=== PATIENT | female | born 1980 | race Hispanic/Latino ===

== ENCOUNTER 2017-05-15 11:12 | Emergency (ER) | payer MEDICAID ==
[2017-05-15 11:55] LABS: APPEARANCE,URINE Clear (CLEAR); BILIRUBIN,URINE Negative (NEGATIVE); COLOR,URINE Yellow (YELLOW); GLUCOSE, URINE (UA) Negative (NEGATIVE); KETONES,URINE Negative (NEGATIVE); LEUKOCYTE ESTERASE ,URINE Trace (NEGATIVE); NITRATE,URINE Negative (NEGATIVE); OCCULT BLOOD,URINE Large (NEGATIVE); PROTEIN,URINE Negative (NEGATIVE); UROBILINOGEN,URINE 0.2 mg/dL (0.2-1.0)
[2017-05-15 11:57] LABS: HCG,QUAL RESULT NEGATIVE (NEGATIVE)
[2017-05-15 12:05] LABS: BACTERIA,URINE Rare /HPF (None Seen); MUCUS,URINE Rare LPF (None Seen); SQUAMOUS EPITHELIAL CELL,UR Few /LPF (0-2); WBC,URINE 0-1 /HPF (0-1)
[2017-05-15 12:21] LABS: RAPID GROUP A STREP NEGATIVE (NEGATIVE)
[2017-05-15] MEDS ORDERED: IBUPROFEN 600 MG TABLET ONE (12:23)
== END 2017-05-15 12:42 | disposition home or self-care (01) ==
LOC: EDH 11:12
DX: J06.9 Acute upper respiratory infection, unspecified (principal); H92.03 Otalgia, bilateral
CPT/HCPCS: 81001; 81025; 87804; 87880